=== PATIENT | male | born 1935 | race Caucasian/White ===

== ENCOUNTER → 2017-06-25 | Outpatient (CLI) | payer OTHER ==
[~2017-06-25] MED LIST: ADVAIR 250/501 DISK IH; ATORVASTATIN CA20 MG PO; CHILD ASPIRIN81 M1 PO; COMBIVENT RESPIM4 GM IH; DULCOLAX10 MG PR; IRON325 MG PO; ISOSORBIDE MONO30 MG PO; LOPRESSOR50 MG PO; MILK OF MAGN PO; MIRALAX17 GM PO; NIFEDICAL XL60 MG PO; SENNA PLUS TAB1 EACH PO; TYLENOL REGULA325 MG PO
== END ==
LOC: RAD 10:14
DX: K80.20 Calculus of gallbladder without cholecystitis without obstruction (principal); N28.1 Cyst of kidney, acquired; R19.5 Other fecal abnormalities
CPT/HCPCS: 74176